=== PATIENT | female | born 1995 | race Two or more races ===

== ENCOUNTER 2018-10-19 23:19 | Emergency (ER) | payer MEDICAID ==
[~2018-10-19] VITALS: Ht 160 cm; Wt 99.8 kg
[2018-10-20 02:25] LABS: Basophils # (auto) 0 uL; Basophils % (auto) 0.4 % (0.0-2.0); Eosinophils # (auto) 0.1 uL; Eosinophils % (auto) 1.4 % (0.0-7.0); Hematocrit 43.2 % (36.0-46.0); Hemoglobin 15.1 g/dL (12.2-16.2); Lymphocytes # (auto) 2.2 uL; Lymphocytes % (auto) 23.3 % (10.0-50.0); Mean Corpuscular Hemoglobin 31.6 pg (28.0-32.0); Mean Corpuscular Hgb Conc. 34.9 g/dL (32.0-36.0); Mean Corpuscular Volume 90.5 fL (80.0-100.0); Monocytes # (auto) 0.7 uL; Monocytes % (auto) 7.5 % (0.0-12.0); Neutrophils # (auto) 6.2 uL; Neutrophils % (auto) 67.4 % (37.0-80.0); Nucleated Red Blood Cells % 0.3 %; Platelet Count (auto) 367 10^3/uL (140-450); Red Blood Cells 4.78 10^6/uL (4.0-5.20); Red Cell Distribution Width 13.2 % (11.8-14.3); White Blood Cell 9.2 10^3/uL (4.4-10.8)
[2018-10-20 02:46] LABS: Anion Gap 10 (5-15); BUN/Creatinine Ratio 18.2; Blood Urea Nitrogen 14 mg/dL (7-18); Calcium 8.4 mg/dL (8.5-10.1); Carbon Dioxide 25 mmol/L (21-32); Chloride 103 mmol/L (98-107); GFR African American 122 mL/min; GFR Non-African American 101 mL/min; Glucose 90 mg/dL (74-106); Potassium 3.4 mmol/L (3.5-5.1); Sodium 138 mmol/L (136-145)
[2018-10-20 02:51] LABS: Alanine Aminotransferase 59 U/L (13-56); Alkaline Phosphatase 115 U/L (45-117); Aspartate Aminotransferase 28 U/L (15-37); Bilirubin, Total 0.3 mg/dL (0.2-1.0); Total Protein 8.5 g/dL (6.4-8.2)
[2018-10-20 03:58] LABS: Urine Pregnacy Test Negative (Negative)
[2018-10-20 04:00] LABS: Urine Bacteria NONE SEEN /hpf (None Seen); Urine Blood Negative /uL (Negative); Urine Specific Gravity 1.011 (1.001-1.035); Urine WBC 1 /hpf (0 - 5)
[2018-10-20 04:15] LABS: Alcohol, Urine < 3.0 mg/dL (0-5); Amphetamine Screen, Urine NEGATIVE (NEGATIVE); Barbiturate Scree,Urine NEGATIVE (NEGATIVE); Benzodiazephine Screen, Urine NEGATIVE (NEGATIVE); Cannabinoid Screen, Urine POSITIVE (NEGATIVE); Cocaine Screen, Urine NEGATIVE (NEGATIVE); Opiate Scree,Urine NEGATIVE (NEGATIVE); Phencyclidine Screen, Urine NEGATIVE (NEGATIVE)
[2018-10-20 06:00] VITALS: BP 102/51
== END 2018-10-20 07:15 | disposition home or self-care (01) ==
LOC: EDBD 23:19 → ER 23:24
DX: R07.89 Other chest pain (principal); Z32.02 Encounter for pregnancy test, result negative
CPT/HCPCS: 36415; 71045; 80053; 80307; 81001; 81025; 83880; 84443; 84484; 85025; 93005

== ENCOUNTER 2021-07-12 20:10 | Emergency (ER) | payer MEDICAID ==
[~2021-07-12] VITALS: Ht 157.5 cm; Wt 104.3 kg
[2021-07-12 20:10] VITALS: BP 132/90
== END 2021-07-12 21:38 | disposition left against medical advice (07) ==
LOC: ER 20:10
DX: R05.9 Cough, unspecified (principal); R51.9 Headache, unspecified; Z53.21 Procedure and treatment not carried out due to patient leaving prior to being seen by health care provider

== ENCOUNTER 2021-12-20 08:11 | Emergency (ER) | payer MEDICAID ==
[~2021-12-20] VITALS: Ht 157.5 cm; Wt 100.0 kg
[2021-12-20 09:40] VITALS: BP 132/80
[2021-12-20] MEDS ORDERED: AMOX-277 PO (10:24)
[2021-12-20] MEDS ORDERED: ACET-1158 PO (10:24)
== END 2021-12-20 10:32 | disposition home or self-care (01) ==
LOC: ER 08:11
DX: H66.91 Otitis media, unspecified, right ear (principal); R59.1 Generalized enlarged lymph nodes; Z79.2 Long term (current) use of antibiotics; Z79.899 Other long term (current) drug therapy

== ENCOUNTER 2024-04-09 13:17 | Emergency (ER) | payer MEDICAID ==
[~2024-04-09] VITALS: Ht 157.5 cm; Wt 98.0 kg
[~2024-04-09 13:17] MED LIST: ACET500T58 PO; AMOX875T4 PO
[2024-04-09 14:13] VITALS: BP 138/94; PULSE 106; RESP 18; TEMP 98.2; O2SAT 97
[2024-04-09] MEDS ORDERED: PRED20TA2 PO (14:39)
[2024-04-09] MEDS ORDERED: MAGIC MT (14:39)
[2024-04-09] MEDS ORDERED: IBUP-1454 PO (14:39)
--- NOTE | 2024-04-09 14:39 | ED.PDOC ---
Eye-HPI HPI Comments 28-year-old female with no pertinent MHx presents with a chief complaint of sore throat, right ear otalgia, body aches that come and go Currently taking azithromycin for five days and promethazine as needed. Reports she was seen at the urgent care for the same complaint three days ago Denies chest pain shortness of breath Denies inability to move neck, history of meningitis Denies difficulty swallowing nor persistent salivation Denies fevers chills night sweats Denies persistent cough, runny nose, congestion Denies loss of appetite, unintentional weight loss over the past 3 months Denies voice changes Denies history of asthma or seasonal allergies Chief Complaint: Sore Throat Time Seen by MD: 13:59 Primary Care Provider: ART Meyers Notes: Nurses Notes, Medications, Allergies Allergies: Coded Allergies: NO KNOWN ALLERGIES (Unverified , 10/20/18) Home Meds Active Scripts Amoxicillin & Pot Clavulanate (Amoxicillin/Potassium Cla) 875 Mg Tab, 1 TAB PO BID for 7 Days, #14 TAB 0 Refills Prov:LAWRENCE CROUCH 12/20/21 Acetaminophen (Acetaminophen) 500 Mg Tab, 500 MG PO QIDP, #30 TAB 0 Refills Prov:LAWRENCE CROUCH 12/20/21 Information Source: Patient Mode of Arrival: Ambulatory Past Medical History PAST MEDICAL HISTORY: Denies Surgical History: Denies all surgeries AMPOULE FILLER History: No Pertinent AMPOULE FILLER History Family History Family History: Unknown Social History Smoker: Non-Smoker Alcohol: Occasionally Drugs: Denies Drug Use Lives In: Home All Other Systems: Reviewed and Negative (per hpi) Physical Exam General Appearance: No Apparent Distress, Normal HEENT: Normal ENT Inspection, Pharynx Normal, TMs Normal Neck: Full Range of Motion, Non-Tender, Normal, Normal Inspection Respiratory: Chest Non-Tender, Lungs Clear, No Accessory Muscle Use, No Respiratory Distress, Normal Breath Sounds Cardiovascular: No Edema, No JVD, No Murmur, No Gallop, Normal Peripheral Pulses, Regular Rate/Rhythm Breast Exam: Deferred Gastrointestinal: No Organomegaly, Non Tender, No Pulsatile Mass, Normal Bowel Sounds, Soft Genitalia: Deferred Pelvic: Deferred Rectal: Deferred Extremities: No calf tenderness, Normal capillary refill, Normal inspection, Normal range of motion, Non-tender, No pedal edema Musculoskeletal : Apperance: Normal Neurologic: Alert, trim operator II-XII nml as Tested, No Motor Deficits, Normal Affect, Normal Mood, No Sensory Deficits Cerebellar Function: Normal Reflexes: Normal Skin: Dry, Normal Color, Warm Lymphatic: No Adenopathy Was a procedure done? Was a procedure done?: No EENT DIFF Eye: Other X-Ray, Labs, Meds, VS Vital Signs Date Time Temp Pulse Resp B/P (MAP) Pulse Ox O2 Delivery O2 Flow Rate FiO2 04/09/24 14:13 98.2 106 18 138/94 (109) 97 98.2 04/09/24 14:13 106 18 97 Room Air 04/09/24 13:30 98.2 106 18 138/94 (109) 97 X-Ray, Labs, Meds, VS Comment Patient presents with a chief complaint of a sore throat. After review of systems and physical examination there are no no concerns or red flags for peritonsillar abscess, abscess formation, epiglottitis, retropharyngeal abscess formation or airway obstruction. No concerns for peritonsillar abscess as patient denies severe sore throat, muffled or hot potato voice, and difficulty handling secretions. No concerns for abscess formation as the soft palate is symmetrical and there is no displacement of the uvula and the uvula is also midline. No concerns for epiglottitis as patient denies severe sore throat, dysphagia, muffled voice, patient is not drooling nor is patient in tripod position. No signs of retropharyngeal abscess formation as patient has no fevers, stiff neck, drooling no stridor No signs of airway obstruction as patient denies sensation of foreign body vital signs stable on room air. External notes reviewed. Test results and diagnostic imaging interpreted. All diagnostic findings, discharge care, education and instructions provided Follow-up with PCP in 2 to 3 days Patient verbalized understanding and agreed to treatment plan Vital signs stable, afebrile, no acute distress noted Patient ambulatory with strong steady gait Advised to return precautions for any new or worsening symptoms, return to ER immediately for re-evaluation Patient is aware that the purpose of this visit was for an acute medical emergency requiring emergent stabilization. Chronic conditions, including malignancies have not been ruled out. Patient is instructed to follow up with PCP as directed and discharge instructions for continued care and workup. If unable to arrange follow-up, patient is to return to the emergency department for reassessment. Patient (parent or legal guardian if applicable) was given verbal and written discharge instructions and acknowledges understanding. Time of 1ST Reevaluation: 14:36 Reevaluation 1ST: Improved Patient Education/Counseling: Diagnosis, Treatment Family Education/Counseling: Diagnosis, Treatment Departure 1 Departure Time of Disposition: 14:37 Impression: Primary Impression: Pharyngitis Qualified Codes: J02.9 - Acute pharyngitis, unspecified Disposition: HOME / SELF CARE / HOMELESS Condition: Stable e-Prescriptions Alum & Mag Hydrox-Simethicone (Magic Mouthwash) 80 Ml Ss 80 ML MT TID for 3 Days, #200 ML 0 Refills Prov: ROGELIO MAGALLON NP 04/09/24 Ibuprofen (Ibuprofen) 600 Mg Tab 1 TAB PO TID for 10 Days, #30 TAB 0 Refills Prov: ROGELIO MAGALLON NP 04/09/24 Prednisone (Prednisone) 20 Mg Tab 40 MG PO DAILY for 5 Days, #10 TAB 0 Refills Prov: ROGELIO MAGALLON NP 04/09/24 Discharged With: Self Critical Care Note Critical Care Time?: No Stability Stability form required: No Heart Score Heart Score: Heart Score Response (Comments) Value History N/A 0 EKG N/A 0 Age N/A 0 Risk Factors N/A 0 Troponin N/A 0 Total 0 ROGELIO MAGALLON NP Apr 09, 2024 14:39
== END 2024-04-09 14:39 | disposition home or self-care (01) ==
LOC: ER 13:17
DX: J02.9 Acute pharyngitis, unspecified (principal)

== ENCOUNTER 2024-08-30 07:52 | Emergency (ER) | payer MEDICAID ==
[~2024-08-30] VITALS: Ht 157.5 cm; Wt 94.5 kg
[~2024-08-30 07:52] MED LIST changes: +IBUP-1454 PO; +MAGIC MT; +PRED20TA2 PO
[2024-08-30] MEDS: ASPirin 325 MG TAB PO ONE (08:15)
--- NOTE | 2024-08-30 08:23 | ED.PDOC ---
HPI Comments 28 y/o F, with no prior medical history presents to the ED for CC of chest pain. Patient states, she has been experiencing right sided non-radiating chest pain with associated symptoms of shortness of breath onset, this morning (08/30/24). Patient relays, pain to worsen with movement. Patient describes, pain to be sharp in nature. Patient denies palpitations, headache, dizziness, nausea, or vomiting. No other symptoms or modifying factors present at this time. Chief Complaint: Chest Pain Time Seen by MD: 08:00 Primary Care Provider: ART Reviewed Notes: Nurses Notes, Medications, Allergies Allergies: Coded Allergies: NO KNOWN ALLERGIES (Unverified , 10/20/18) Home Meds Active Scripts Alum & Mag Hydrox-Simethicone (Magic Mouthwash) 80 Ml Ss, 80 ML MT TID for 3 Days, #200 ML 0 Refills Prov:ROGEL[facility] MAGALLON [facility] 04/09/24 Ibuprofen (Ibuprofen) 600 Mg Tab, 1 TAB PO TID for 10 Days, #30 TAB 0 Refills Prov:ROGELIO MAGALLON [facility] 04/09/24 Prednisone (Prednisone) 20 Mg Tab, 40 MG PO DAILY for 5 Days, #10 TAB 0 Refills Prov:ROGELIO MAGALLON [facility] 04/09/24 Amoxicillin & Pot Clavulanate (Amoxicillin/Potassium Cla) 875 Mg Tab, 1 TAB PO BID for 7 Days, #14 TAB 0 Refills Prov:LAWRENCE CROUCH 12/20/21 Acetaminophen (Acetaminophen) 500 Mg Tab, 500 MG PO QIDP, #30 TAB 0 Refills Prov:LAWRENCE CROUCH 12/20/21 Information Source: Patient Mode of Arrival: Ambulatory Severity: Moderate Timing: Hours Duration: Since onset Prehospital treatment: None Location: Chest (R) Radiation: No Radiation Quality: Sharp Onset: At Rest Cardiac Risk Factors: None PE Risk Factors: None History of: None Modifying Factors: Nothing Associated Signs and Symptoms: SOB Past Medical History PAST MEDICAL HISTORY: Denies Surgical History: Denies all surgeries FORM SETTER HELPER History: No Pertinent FORM SETTER HELPER History Family History Family History: Unknown Social History Smoker: Non-Smoker Alcohol: Occasionally Drugs: Denies Drug Use Lives In: Home EENTM: denies: blurred vision, double vision, ear bleeding, ear discharge, ear drainage, ear pain, ear ringing, eye pain, eye redness, hearing loss, mouth pain, mouth swelling, nasal discharge, nose bleeding, nose congestion, nose pain, photophobia, tearing, throat pain, throat swelling, voice changes, others Respiratory: reports: shortness of breath; denies: cough, hemoptysis, orthopnea, SOB at rest, SOB with excertion, stridor, wheezing, others Cardiovascular: reports: chest pain; denies: dizzy spells, diaphoresis, Dyspnea on exertion, edema, irregular heart beat, left arm pain, lightheadedness, palpitations, PND, syncope, others Gastrointestinal: denies: abdomen distended, abdominal pain, blood streaked bowels, constipated, diarrhea, dysphagia, difficulty swallowing, hematemesis, melena, nausea, poor appetite, poor fluid intake, rectal bleeding, rectal pain, vomiting, others Genitourinary: denies: abnormal vagina bleeding, burning, dyspareunia, dysuria, flank pain, frequency, hematuria, incontinence, pain, , vagina discharge, urgency, others Neurological: denies: dizziness, fainting, headache, left sided numbness, left sided weakness, numbness, paresthesia, pre-existing deficit, right sided numbness, right sided weakness, seizure, speech problems, tingling, tremors, weakness, others Musculoskeletal: denies: back pain, gout, joint pain, joint swelling, muscle pain, muscle stiffness, neck pain, others Integumetry: denies: bruises, change in color, change in hair/nails, dryness, laceration, lesions, lumps, rash, wounds, others Allergic/Immunocompromised: denies: Difficulty Healing, Frequent Infections, Hives, Itching, others Hematologic/Lymphatic: denies: anemia, blood clots, easy bleeding, easy bruising, swollen glands, others Endocrine: denies: excessive hunger, excessive sweating, excessive thirst, excessive urination, flushing, intolerance to cold, intolerance to heat, unexplained weight gain, unexplained weight loss, others Psychiatric: denies: anxiety, bipolar disorder, depression, hopeless, panic disorder, schizophrenia, sleepless, suicidal, others All Other Systems: Reviewed and Negative Physical Exam General Appearance: Moderate Distress HEENT: Normal ENT Inspection, Pharynx Normal, TMs Normal Neck: Full Range of Motion, Non-Tender, Normal, Normal Inspection Respiratory: Chest Non-Tender, Lungs Clear, No Accessory Muscle Use, No Re spiratory Distress, Normal Breath Sounds Cardiovascular: No Edema, No JVD, No Murmur, No Gallop, Normal Peripheral Pulses, Regular Rate/Rhythm Breast Exam: Deferred Gastrointestinal: No Organomegaly, Non Tender, No Pulsatile Mass, Normal Bowel Sounds, Soft Genitalia: Deferred Pelvic: Deferred Rectal: Deferred Extremities: No calf tenderness, Normal capillary refill, Normal inspection, Normal range of motion, Non-tender, No pedal edema Musculoskeletal : Apperance: Normal Neurologic: Alert, 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 Was a procedure done?: No CP Differential Dx Differential Diagnosis: A-fib, A-Flutter, Angina, Anxiety / Panic Attack, Atrial Dysrhythmia, Electrolyte Disorder Differential Diagnosis: Chest Wall Pain, Costochondritis X-Ray, Labs, Meds, VS Vital Signs Date Time Temp Pulse Resp B/P (MAP) Pulse Ox O2 Delivery O2 Flow Rate FiO2 08/30/24 08:01 74 08/30/24 07:54 97.6 62 16 109/72 (84) 99 97.6 Lab Test 08/30/24 07:58 Range/Units Troponin I High Sensitivity < 3 L </=34 ng/L Patient alert. Complaining of chest discomfort on the right side. Vitals stable. Answering questions. Was given aspirin. No sign of any heart problems. No risk factors for coronary artery disease. EKG reviewed does not show any acute changes. Cardiac marker within normal limits. No leg swelling. No shortness a breath. Good lung expansion. Explained to the patient that she has no risk factors for coronary artery disease. Was told to follow up with her primary care physician. Was told to come back if there is any problem. Time of 1ST Reevaluation: 08:30 Reevaluation 1ST: Unchanged Patient Education/Counseling: Diagnosis, Treatment Family Education/Counseling: No Family Present Departure 1 Departure Time of Disposition: 08:35 Impression: Primary Impression: Musculoskeletal chest pain Disposition: 01 HOME / SELF CARE / HOMELESS Condition: Good Discharged With: Self Critical Care Note Critical Care Time?: No Stability Stability form required: No Heart Score Heart Score: Heart Score Response (Comments) Value History Slightly Suspicious 0 EKG Normal 0 Age <45 0 Risk Factors No known risk factors 0 Troponin Normal limit 0 Total 0 I personally scribed for DANIEL CAMEJO MD ([email or web address]) on 08/30/24 at 08:23. Electronically submitted by Inna Coffman ([email or web address]). DANIEL CAMEJO MD August 30, 2024 08:23
[2024-08-30 09:25] VITALS: BP 111/69; PULSE 60; RESP 13; TEMP 97.7; O2SAT 98
--- NOTE | 2024-08-30 09:40 | ECG ---
[facility] Test Date: 2024-08-30 Test Time: 08:01:31 Pat Name: RAYO SMITHDepartment: ER Room: Gender: F Wood Hacker: ALMA ROSA : 1995 Requested By: DANIEL CAMEJO Order Number: [id number] Reading MD: Rhett Mayorga Measurements Intervals Drew Rate: 74 P: 57 UT: 179 QRS: 47 QRSD: 90 T: 58 QT: 409 QTc: 454 Interpretive Statements Sinus rhythm Electronically Signed On 09-02-2024 22:11:28 PDT by Rhett Mayorga Please click the below link to view image of tracing.
== END 2024-08-30 09:34 | disposition home or self-care (01) ==
LOC: ER 07:52
DX: R07.89 Other chest pain (principal); F10.90 Alcohol use, unspecified, uncomplicated; Y90.9 Presence of alcohol in blood, level not specified; Z79.899 Other long term (current) drug therapy; Z79.1 Long term (current) use of non-steroidal anti-inflammatories (NSAID); Z79.52 Long term (current) use of systemic steroids
CPT/HCPCS: 36415; 84484; 93005